=== PATIENT | female | born 1985 | race Caucasian/White ===

== ENCOUNTER → 2021-10-19 | Outpatient (CLI) | payer OTHER ==
[2021-10-19 14:12] LABS: Basophils # (A) 0.13 X 10*3/uL (0.00-0.10); Basophils % (A) 1.7 %; Eosinophils # (A) 0.72 X 10*3/uL (0.04-0.35); Eosinophils % (A) 9.6 %; HCT 39.5 % (37.2-46.3); Immature Grans, Automated 0.3 %; Lymphocytes # (A) 1.93 X 10*3/uL (0.90-5.00); Lymphocytes % (A) 25.7 %; MCH 29.8 pg (27.0-32.0); MCHC 32.9 g/dL (32.0-37.0); MCV 90.6 fL (80.0-97.0); Mean Platelet Volume 9.2 fL (9.5-12.2); Monocytes # (A) 0.57 X 10*3/uL (0.20-1.00); Monocytes % (A) 7.6 %; NRBC Per 100 WBC 0 /100 WBCS (0.0-0.0); Neutrophils # (A) 4.13 X 10*3/uL (1.80-7.70); Neutrophils % (A) 55.1 %; Platelet Count 362 X 10*3/uL (140-440); RBC 4.36 X 10*6/uL (4.10-5.20); RDW 12.3 % (11.5-14.5)
== END | disposition home or self-care (01) ==
LOC: LABPAT 08:13
PROVIDERS: ATTEND Obstetrics & Gynecology
DX: Z01.818 Encounter for other preprocedural examination (principal); I49.2 Junctional premature depolarization; N93.8 Other specified abnormal uterine and vaginal bleeding
CPT/HCPCS: 36415; 85025; 93005

== ENCOUNTER 2021-10-23 06:42 | Day surgery (SDC) | payer OTHER ==
[2021-10-19 10:42] VITALS: BMI 32.0
--- NOTE | 2021-10-22 09:49 | HP ---
HISTORY AND PHYSICAL DATE OF PROCEDURE: 10/23/2021 HISTORY: This is a 36-year-old 1, para 1 woman with a history of menometrorrhagia. She has failed multiple medical management approaches, including Depo-Provera and oral contraceptive pills. She is scheduled for diagnostic hysteroscopy and NovaSure endometrial ablation. She had a benign endometrial biopsy on 08/22/2021. Pelvic ultrasound shows a uterus measuring 8.8 x 5.0 x 3.9 cm with normal bilateral adnexa. ALLERGIES: NONE. MEDICATIONS: Levothyroxine, metoprolol, baclofen, vitamin D3. PAST MEDICAL HISTORY: Hypothyroidism, anemia, anxiety and depression. PAST SURGICAL HISTORY: Adenoidectomy. OBSTETRICAL/GYNECOLOGICAL PAST HISTORY: She is 1, para 1, with the above menstrual history. She has had one normal spontaneous vaginal delivery. FAMILY HISTORY: Noncontributory. SOCIAL HISTORY: She is . Positive for occasional alcohol and marijuana use. REVIEW OF SYSTEMS: Negative except for that described above in the HPI. PHYSICAL EXAMINATION: Height 5 feet 4 inches, weight 172 pounds, blood pressure 110/80, heart rate 102 degrees. In general, this is a pleasant female in no obvious distress. HEENT exam is unremarkable with no palpable lymphadenopathy or thyromegaly. Lungs are clear to auscultation bilaterally and the heart is of regular rate and rhythm. The abdomen is soft and nontender with no rebound, no guarding and flank pain. On pelvic examination, she has normal female external genitalia without lesions or irritation. On bimanual examination, the uterus is small, freely mobile and in the midline. No adnexal masses are palpable. Neurologic exam is grossly normal. ASSESSMENT: Uftgiv-upv-oofw-old 1, para 1 woman with menometrorrhagia. She is scheduled for diagnostic hysteroscopy and NovaSure endometrial ablation on 10/23/2021. The procedure has been reviewed with the patient in detail, including anticipated recovery and risks. Risks include but are not limited to bleeding, transfusion, infection, uterine perforation with possible damage to internal pelvic organs. She also understands she may have ongoing bleeding despite the procedure. Consent has been obtained. We have also discussed the need for ongoing reliable contraception and is contraindicated following an ablation procedure. MMODL / IJN: [id number] /
[~2021-10-23 06:42] MED LIST: DEXAMETHASONE SOD PHOSPHATE 4 MG/ML 1 ML VIAL IV ONE; LACTATED RINGERS 1,000 ML IV SCH; LIDOCAINE 1% (10MG/ML) FOR IV START INTRADERMA PRN; MIDAZOLAM 2 MG/2 ML VIAL IV PRN; ONDANSETRON 4 MG/2 ML VIAL IVP ONE; Pre Op ABX Message 1 EACH MISC MISCELLANE ONE
[2021-10-23] MEDS ORDERED: HYDROmorphone 0.5 MG/0.5 ML SYRINGE IVP PRN (07:00)
[2021-10-23] MEDS ORDERED: MIDAZOLAM 2 MG/2 ML VIAL ONE (08:23)
[2021-10-23] MEDS ORDERED: fentaNYL (PF) 50 MCG/ML 2 ML AMP ONE (08:23)
[2021-10-23] MEDS ORDERED: LIDOCAINE 2% INJ 20 MG/ML (2 ML VIAL) ONE (08:23)
[2021-10-23] MEDS ORDERED: PROPOFOL 10 MG/ML 20 ML VIAL IV ONE (08:23)
[2021-10-23] MEDS ORDERED: LIDOCAINE 1%-EPI 1:100,000 20 ML VIAL SQ ONE (08:53)
--- NOTE | 2021-10-23 09:07 | P.OP ---
Date of Procedure: 10/23/21 Preoperative Diagnosis: Menometrorrhagia Postoperative Diagnosis: Same Procedure(s) Performed: diagnostic hysteroscopy and NovaSure endometrial ablation Anesthesia: MAC Surgeon: Abigail Thorne Estimated Blood Loss (ml): 1 IV fluids (ml): 400 Urine output (ml): 25 Pathology: none sent Condition: stable Disposition: PACU Indications for Procedure: Menometrorrhagia Operative Findings: Normal intrauterine cavity with fluffy endometrium, no gross intracavitary lesions noted Description of Procedure: After the patient was met in the preoperative holding area and all questions were answered, she was taken to the operating room where anesthetic was administered without incident. She was then positioned, prepped and draped in the dorsal lithotomy position. Exam under anesthetic was undertaken. Bladder was drained for 25 mL of clear urine. Weighted speculum was placed in the vagina and the cervix was grasped anteriorly with a simple tooth tenaculum. Paracervical block with lidocaine plus epinephrine was placed. The uterus was sounded to 8 cm. The cervix was then sequentially dilated to allow for passage of the diagnostic hysteroscope. Hysteroscope was introduced and the above findings were noted. Hysteroscope was removed and the cervix was further dilated to allow for passage of the NovaSure ablation device. The device was inserted with a cavity length of 5 cm and a width of 3 cm. Cavity assessment was passed. Device was enabled for treatment cycle of 51 seconds with a power of 83 W. Following cessation of the treatment cycle device was removed and the hysteroscope was reintroduced. Complete desiccation of the endometrium was appreciated. Instruments were then removed and the cervix was observed. No active bleeding was noted. Speculum was removed and the patient was awoken from anesthetic without incident and transported cover area in good condition. All counts were correct.
[2021-10-23 09:08] VITALS: RESP 16; TEMP 97.1
[2021-10-23] MEDS ORDERED: HYDROmorphone 0.5 MG/0.5 ML SYRINGE IVP ONE (09:17)
[2021-10-23] MEDS ORDERED: LACTATED RINGERS 1,000 ML IV ONE (09:44)
[2021-10-23 10:28] VITALS: BP 113/72; PULSE 79
== END 2021-10-23 10:51 | disposition home or self-care (01) ==
LOC: OR 06:42
PROVIDERS: ATTEND Obstetrics & Gynecology
DX: N92.1 Excessive and frequent menstruation with irregular cycle (principal); E03.9 Hypothyroidism, unspecified; F12.90 Cannabis use, unspecified, uncomplicated
CPT/HCPCS: 58563; 81025; J2250; J1100; J2405; J3010; J2704; J1170; J2001

== ENCOUNTER 2022-08-24 17:01 | Emergency (ER) | payer BC, OTHER ==
[2022-08-24 17:06] VITALS: PULSE 79
--- NOTE | 2022-08-24 17:22 | ED ---
Lower Extremity Injury HPI - General Chief Complaint: Extremity Injury, Lower Stated Complaint: right ankle injury Time Seen by Provider: 08/24/22 17:08 Source: patient Mode of arrival: ambulatory Limitations: no limitations - History of Present Illness Initial Comments: Patient is a 37-year-old female presenting with chief complaint of right ankle pain. Patient states that she fell down one stair last night. She is now experiencing increased pain and swelling. Pain is relieved with rest and worsened with weightbearing. No numbness or tingling. Patient is still able to move the toes. - Related Data Home Medications Medication Instructions Recorded Confirmed Escitalopram [Lexapro] 10 mg PO DAILY 10/19/21 10/19/21 Levothyroxine Sodium [Synthroid] 50 mcg PO DAILY 10/19/21 10/19/21 Levothyroxine Sodium [Synthroid] 100 mcg PO GEE 10/19/21 10/19/21 Metoprolol Succinate (ER) [Toprol 25 mg PO DAILY 10/19/21 10/19/21 Xl] Allergies Allergy/AdvReac Type Severity Reaction Status Date / Time latex Allergy Rash/Hives Verified 08/24/22 17:06 Penicillins Allergy Unknown Verified 08/24/22 17:06 Childhood Review of Systems ROS Statement: Those systems with pertinent positive or pertinent negative responses have been documented in the HPI. ROS Other: All systems not noted in ROS Statement are negative. Past Medical History Past Medical History: Thyroid Disorder Additional Past Medical History / Comment(s): hypothyroid History of Any Multi-Drug Resistant Organisms: None Reported Past Surgical History: Back Surgery, Uterine Ablation Additional Past Surgical History / Comment(s): microdisectomy, Past Psychological History: Bipolar, Depression Smoking Status: Never smoker Past Alcohol Use History: None Reported Past Drug Use History: None Reported General Exam Limitations: no limitations General appearance: alert, in no apparent distress Head exam: Present: atraumatic, normocephalic, normal inspection Eye exam: Present: normal appearance Neck exam: Present: normal inspection, full ROM Right Ankle exam: Present: tenderness, swelling. Absent: deformity Neurological exam: Present: alert, oriented X3, CN II-XII intact Psychiatric exam: Present: normal affect, normal mood Skin exam: Present: warm, dry, intact, normal color. Absent: rash Course Vital Signs 08/24/22 08/24/22 17:03 18:48 Temperature 98.0 F 98 F Pulse Rate 79 79 Respiratory 20 16 Rate Blood Pressure 136/82 121/81 O2 Sat by Pulse 99 98 Oximetry Medical Decision Making - Medical Decision Making Was pt. sent in by a medical professional or institution (, RUBY, WATER GAS OPERATOR, urgent care, hospital, or intermediate...) When possible be specific @ -No Did you speak to anyone other than the patient for history (EMS, parent, family, police, friend...)? What history was obtained from this source @ -No Did you review nursing and triage notes (agree or disagree)? Why? @ -I reviewed and agree with nursing and triage notes Were old charts reviewed (outside hosp., previous admission, EMS record, old EKG, old radiological studies, urgent care reports/EKG's, intermediate records)? Report findings @ -No old charts were reviewed Differential Diagnosis (chest pain, altered mental status, abdominal pain women, abdominal pain men, vaginal bleeding, weakness, fever, dyspnea, syncope, headache, dizziness, GI bleed, back pain, seizure, CVA, palpatations, mental health, musculoskeletal)? @ -Differential Musculoskeletal Muscular strain, contusion, ligament sprain, fracture, arthritis, septic arthritis, bursitis, cellulitis, muscle spasm, nerve compression, DVT, arterial occlusion, herpes zoster, electrolyte abnormality, tumor.... This is not meant to be in all inclusive list EKG interpreted by me (3pts min.). @ -As above X-rays interpreted by me (1pt min.). @ -Ankle x-ray shows no evidence of fracture or dislocation CT interpreted by me (1pt min.). @ -None done U/S interpreted by me (1pt. min.). @ -None done What testing was considered but not performed or refused? (CT, X-rays, U/S, labs)? Why? @ -None What meds were considered but not given or refused? Why? @ -None Did you discuss the management of the patient with other professionals (professionals i.e. , RUBY, WATER GAS OPERATOR, lab, RT, psych nurse, manager social media, head usher, teacher, chief medical officer, case assembler)? Give summary @ -No Was smoking cessation discussed for >3mins.? @ -No Was critical care preformed (if so, how long)? @ -No Were there social determinants of health that impacted care today? How? (Homelessness, low income, unemployed, alcoholism, drug addiction, transportation, low edu. Level, literacy, decrease access to med. care, fdc, rehab)? @ -No Was there de-escalation of care discussed even if they declined (Discuss DNR or withdrawal of care, Hospice)? DNR status @ -No What co-morbidities impacted this encounter? (DM, HTN, Smoking, COPD, CAD, Cancer, CVA, ARF, Chemo, Hep., AIDS, mental health diagnosis, sleep apnea, morbid obesity)? @ -None Was patient admitted / discharged? Hospital course, mention meds given and route, prescriptions, significant lab abnormalities, going to OR and other pertinent info. @ -Patient is a 37-year-old female presenting with chief complaint of right sided ankle pain. She fell down one stair last night. On physical examination there is tenderness to palpation and swelling noted, no obvious deformity and sh e is neurovascularly intact. X-ray shows no evidence of fracture or dislocation. Patient is educated on ankle sprain and supportive treatment. Follow-up with PCP. Report back to ER with any new or worsening symptoms. Discussed return parameters and answered all questions. Patient conveyed verbal understanding and agreed to the plan. I discussed this case in detail with my a ttending Dr. Talavera Undiagnosed new problem with uncertain prognosis? @ -No Drug Therapy requiring intensive monitoring for toxicity (Heparin, Nitro, Insulin, Cardizem)? @ -No Were any procedures done? @ -No Diagnosis/symptom? @ -Ankle sprain Acute, or Chronic, or Acute on Chronic? @ -Acute Uncomplicated (without systemic symptoms) or Complicated (systemic symptoms)? @ -Uncomplicated Side effects of treatment? @ -No Exacerbation, Progression, or Severe Exacerbation? @ -No Poses a threat to life or bodily function? How? (Chest pain, [place], [place], pneumonia, PE, COPD, DKA, ARF, appy, cholecystitis, CVA, Diverticulitis, Homicidal, Suicidal, threat to staff... and all critical care pts) @ -No Disposition Clinical Impression: Ankle sprain Disposition: HOME SELF-CARE Condition: Good Instructions (If sedation given, give patient instructions): Ankle Sprain (ED) Additional Instructions: Follow-up with PCP. Report back to ER with any new or worsening symptoms. Rest, ice, compress, and elevate. Take Motrin and Tylenol as needed. Is patient prescribed a controlled substance at d/c from ED?: No Referrals: Reg Alford NPC [Family Provider] - 1-2 days Time of Disposition: 18:39
--- NOTE | 2022-08-24 18:25 | XR ---
EXAMINATION TYPE: XR ankle complete RT DATE OF EXAM: 08/24/2022 5:26 PM INDICATION: Patient age:Female; 37 years old; Reason for study: ankle injury COMPARISON: None TECHNIQUE: The right ankle is imaged in frontal, lateral and oblique projections. FINDINGS: There is no evidence of acute osseous pathology. The joint spaces are well-preserved without evidenc e of subluxation or dislocation. Kager's fat pad is intact. Mild soft tissue swelling around the ankl e. No radiopaque foreign bodies are identified. IMPRESSION: 1. No evidence of acute fracture. 2. Subcutaneous swelling around the ankle likely secondary to underlying soft tissue injury.
[2022-08-24 18:50] VITALS: BP 121/81; RESP 16; TEMP 98
== END 2022-08-24 18:50 | disposition home or self-care (01) ==
LOC: EC 17:01
DX: S93.401A Sprain of unspecified ligament of right ankle, initial encounter (principal); E03.9 Hypothyroidism, unspecified; F31.9 Bipolar disorder, unspecified; Z79.890 Hormone replacement therapy; Z91.040 Latex allergy status; Z88.0 Allergy status to penicillin; W10.9XXA Fall (on) (from) unspecified stairs and steps, initial encounter
CPT/HCPCS: 99283